=== PATIENT | male | born 1965 | race Native Hawaiian/Other Pacific Islander ===

== ENCOUNTER 2022-05-22 14:42 | Emergency (ER) | payer OTHER ==
[~2022-05-22] VITALS: Ht 190.5 cm; Wt 113.4 kg
[2022-05-22 14:45] VITALS: BP 144/73; TEMP 97.6
== END 2022-05-22 15:57 | disposition home or self-care (01) ==
LOC: ED 14:42
PROC: 2W3CX1Z Immobilization of Right Lower Arm using Splint (ICD-10-PCS; principal; 2022-05-22)
DX: S66.811A Strain of other specified muscles, fascia and tendons at wrist and hand level, right hand, initial encounter (principal); S60.811A Abrasion of right wrist, initial encounter; S61.531A Puncture wound without foreign body of right wrist, initial encounter; W30.9XXA Contact with unspecified agricultural machinery, initial encounter; Y92.89 Other specified places as the place of occurrence of the external cause
CPT/HCPCS: 99283